=== PATIENT | male | born 1990 | race Caucasian/White ===

== ENCOUNTER 2023-12-11 06:23 | Day surgery (SDC) | payer OTHER, SELFPAY ==
[2023-12-11 10:36] VITALS: BMI 21.5
[2023-12-11 10:37] VITALS: BMI 21.5
[2023-12-11 10:46] VITALS: BP 120/74
[2023-12-11] MEDS: NORMOSOL-R 1000 IV (10:54)
[2023-12-11 13:45] VITALS: BP 115/76
[2023-12-11 14:00] VITALS: BP 111/76
[2023-12-11 14:15] VITALS: BP 115/79
== END 2023-12-11 14:35 | disposition home or self-care (01) ==
LOC: SDS 06:23
PROVIDERS: ATTENDING PHYSICIAN Surgery
DX: A63.0 Anogenital (venereal) warts (principal)
CPT/HCPCS: 46922; 88304